=== PATIENT | female | born 1990 | race Caucasian/White ===

== ENCOUNTER 2022-12-02 12:44 | Outpatient (AMB) | payer OTHER, SELFPAY ==
--- NOTE | 2022-12-02 12:50 | A.OFFVIS_ITS ---
Intake Vital Signs 12/02/22 12:52 12/02/22 13:30 Height 5 ft 4.5 in Weight 182 lb 2 oz BMI 30.8 30.8 BP 114/78 Blood Pressure Location Rt brachial Position Sitting Intake Visit Reasons: [id number] Intake Note: Patient presents for evaluation for ? MS Allergies oxycodone Allergy (Severe, Verified 12/02/22 12:55) Hives shrimp Allergy (Severe, Verified 12/02/22 12:55) Anaphylaxis Medication List - Last Reconciled 12/02/22 by Juju Crane MD clonazepam 0.5 mg PO TID PRN insulin lispro 6 - 16 units subcut TID omeprazole 20 mg PO DAILY trazodone 100 mg PO DAILY venlafaxine ER (Effexor XR) 150 mg PO DAILY HPI HPI Comments History of Present Illness Details 32y/o female comes here for evaluation of headaches, numbness, tingling in hands, muscle spasms, weakness, memory issues etc. she has h/o diabetes since age 1. She has not felt normal since her at age 22.She started to have muscle spasms and generalized body pain and has worsened progressively. For past 18months she noticed numbness, tingling coldness in her hands and she was dropping things. she had EMG NCS at [facility] was was normal. she also started having short term memory issues -forgets names , words ,forgets conversations etc. SHe has h/o depression and anxiety managed by a PCP and psychologist. She sleeps good most of the time. she reports generalized fatigue, excessive daytime sleepiness. Her grand mother had dementia. she has headaches - 2-3 /week and migraines 1/month Her last Hg A1C wa s8.4 6 months ago [facility] Medical History (Updated 12/02/22 @ 13:46 by Juju Crane MD) Anxiety Depression Diabetes type 1, controlled GERD (gastroesophageal reflux disease) Hypersomnia Insomnia Memory loss Migraines, neuralgic Panic disorder Paresthesias Snoring Weakness Surgical History H/O colonoscopy H/O esophagogastroduodenoscopy H/O tubal ligation History of partial hysterectomy History of salpingectomy Hx of section Hx of dilation and curettage Hx of tonsillectomy Family History Father Hyperlipidemia Skin disorder Mother COPD (chronic obstructive pulmonary disease) Cancer Anemia Hyperlipidemia Daughter Asthma Acute eczema Social History Alcohol intake: never Patient Tobacco Use Status: Never used Tobacco Review of Systems Const Reports daytime sleepiness, Reports difficulty sleeping, Reports fatigue, Reports lethargy, Reports malaise and Reports weight gain Eyes Reports blurry vision ENT Reports neck pain GI Reports constipation, Reports GI cramping and Reports diarrhea Musc Reports back pain, Reports arthralgias, Reports neck pain, Reports numbness and Reports tingling Neuro Reports memory loss, Reports numbness, Reports tingling and Reports paresthesias Psych Reports anxiety, Reports depression and Reports memory loss Endo Reports fatigue Physical Exam Vital Signs: Last Vital Signs BP 114/78 12/02/22 12:52 BMI result Body Mass Index 30.8 Const General: cooperative, healthy appearing, comfortable and no acute distress Nutritional Appearance: average body habitus Orientation/consciousness: patient oriented x3 Limitations: no limitations Eyes Pupils: Equal, round and reactive pupils present Neck Neck: Yes no meningeal signs Neuro General: patient oriented x3, gait normal, tone normal, moves all extremities, no meningeal signs and no focal motor deficits Cranial nerves: Yes Facial sensation intact/muscles of mastication intact, Yes Equal, round and reactive pupils present, Yes Bilaterally intact EOM present, Yes Nystagmus not present, Yes Normal facial strength present, Yes Midline tongue present, Yes Symmetric palate elevation present and Yes Ability to bilaterally elevate shoulders present Cognition (Neuro): normal cognition Gait exam (Neuro): Normal gait present Motor exam (neuro): 5/5 motor strength present throughout and Normal motor muscle tone present throughout Deep tendon reflexes (DTR's): Right triceps reflex intensity grade: 1+, Left triceps reflex intensity grade: 1+, Rt Biceps (C5, C6): 1+, Left biceps reflex intensity grade: 1+, Right brachioradialis reflex intensity grade: 1+, Left brachioradialis reflex intensity grade: 1+, Right patellar reflex intensity grade: 1+ and Left patellar reflex intensity grade: 1+ Coordination: [id number] test normal Assessment & Plan Assessment & Plan (1) Paresthesias: Comment: ? related to diabetes , anxiety etc Code(s): R20.2 - Paresthesia of skin (2) Memory loss: Code(s): R41.3 - Other amnesia (3) Weakness: Code(s): R53.1 - Weakness (4) Snoring: Code(s): R06.83 - Snoring Plan Request MRI EMG reports from [facility] Sleep study to r/o sleep apnea F/u psychologist and consider psychiatry referral F/u PCP endocrinology for diabetes which is likely contributing to her paresthesias and cognitive issues. Orders: Orders RT home sleep study Today G47.10 - Hypersomnia, unspecified, R06.83 - Snoring Coding Level of Care Code New Pt Level 4 (27272) Diagnoses Paresthesias R20.2 Memory loss R41.3 Weakness R53.1 Snoring R06.83
[2022-12-02 12:52] VITALS: BP 114/78; BMI 30.8
--- NOTE | 2022-12-02 13:16 | MHC.OFFVIS ---
Intake Vital Signs 12/02/22 12:52 12/02/22 13:30 Height 5 ft 4.5 in Weight 182 lb 2 oz BMI 30.8 30.8 BP 114/78 Blood Pressure Location Rt brachial Position Sitting Intake Visit Reasons: [id number] Allergies oxycodone Allergy (Severe, Verified 12/02/22 12:55) Hives shrimp Allergy (Severe, Verified 12/02/22 12:55) Anaphylaxis Medication List - Last Reconciled 12/02/22 by Juju Crane MD clonazepam 0.5 mg PO TID PRN insulin lispro 6 - 16 units subcut TID omeprazole 20 mg PO DAILY trazodone 100 mg PO DAILY venlafaxine ER (Effexor XR) 150 mg PO DAILY PFSH Medical History (Updated 12/02/22 @ 13:46 by Juju Crane MD) Anxiety Depression Diabetes type 1, controlled GERD (gastroesophageal reflux disease) Hypersomnia Insomnia Memory loss Migraines, neuralgic Panic disorder Paresthesias Snoring Weakness Surgical History H/O colonoscopy H/O esophagogastroduodenoscopy H/O tubal ligation History of partial hysterectomy History of salpingectomy Hx of section Hx of dilation and curettage Hx of tonsillectomy Family History Father Hyperlipidemia Skin disorder Mother COPD (chronic obstructive pulmonary disease) Cancer Anemia Hyperlipidemia Daughter Asthma Acute eczema Social History Alcohol intake: never Patient Tobacco Use Status: Never used Tobacco Physical Exam Vital Signs: Last Vital Signs BP 114/78 12/02/22 12:52 BMI result Body Mass Index 30.8 Assessment & Plan Assessment & Plan Orders: Orders RT home sleep study 12/02/22 G47.10 - Hypersomnia, unspecified, R06.83 - Snoring Coding Diagnoses
== END 2022-12-02 13:38 | disposition home or self-care (01) ==
PROVIDERS: Visit Provider Psychiatry & Neurology Neurology
DX: R20.2 Paresthesia of skin (principal); R41.3 Other amnesia; R53.1 Weakness; R06.83 Snoring
CPT/HCPCS: 99204

== ENCOUNTER → 2022-12-02 12:44 | Outpatient (BNVA) | payer OTHER, SELFPAY | PROVIDERS: Visit Provider Psychiatry & Neurology Neurology | DX: R41.3 Other amnesia (principal); R20.2 Paresthesia of skin; R53.1 Weakness; R06.83 Snoring | CPT/HCPCS: 99202 ==